=== PATIENT | male | born 1990 | race Caucasian/White ===

== ENCOUNTER 2018-03-09 13:34 | Emergency (ER) | payer SELFPAY ==
[~2018-03-09] VITALS: Ht 162.6 cm; Wt 106.0 kg
[2018-03-09] MEDS ORDERED: TETANUS, DIPHTHERIA, PERTUSSIS VAC/PF 0.5ML (>7YR OLD) IM ONE ×2 (14:45→21:42)
[2018-03-09] MEDS ORDERED: BACITRACIN ZINC OINT UDPKT TOP ONE ×2 (14:45→21:15)
[2018-03-09] MEDS ORDERED: LIDOCAINE HCL 1% 20ML VIAL (Pyxis) INJ INFIL ONE (14:45)
[2018-03-09 20:30] VITALS: BP 115/67
[2018-03-09] MEDS ORDERED: LIDOCAINE HCL/PF 1% 10 MG/ML 5ML VIAL IJ SCH (21:01)
== END 2018-03-09 22:28 | disposition home or self-care (01) ==
LOC: ER 13:54
DX: S61.012A Laceration without foreign body of left thumb without damage to nail, initial encounter (principal); Z23 Encounter for immunization; W01.0XXA Fall on same level from slipping, tripping and stumbling without subsequent striking against object, initial encounter; Y93.89 Activity, other specified; Y92.89 Other specified places as the place of occurrence of the external cause; Y99.8 Other external cause status
CPT/HCPCS: 12002; 73140; 90471; 90715; 99284; J3490; X7700; Z7610